=== PATIENT | male | born 1955 | race Caucasian/White ===

== ENCOUNTER 2018-06-10 13:00 | Day surgery (SDC) | payer MEDICARE, OTHER ==
[2018-06-10] MEDS ORDERED: LIDOCAINE 100 MG SYRINGE (14:49)
[2018-06-10] MEDS ORDERED: PROPOFOL 20 ML (14:49)
[2018-06-10] MEDS ORDERED: FENTAnyl 50 MCG/ML VIAL (14:49)
== END 2018-06-10 18:22 | disposition home or self-care (01) ==
LOC: GIL 13:00
DX: I85.00 Esophageal varices without bleeding (principal); K25.9 Gastric ulcer, unspecified as acute or chronic, without hemorrhage or perforation; E11.9 Type 2 diabetes mellitus without complications
CPT/HCPCS: 43235